=== PATIENT | female | born 1965 ===

== ENCOUNTER 2021-01-27 06:20 | Day surgery (SDC) | payer OTHER ==
[~2021-01-27 06:20] MED LIST: LEVOTHYROXINE25 MCG PO; LIPITOR20 MG; TOPROL XL25 M1 PO
[2021-01-27] MEDS ORDERED: DOXYCYCLINE HY100 M2 PO (16:19)
[2021-01-27] MEDS ORDERED: IBU600 MG PO (16:20)
== END 2021-01-27 20:55 | disposition home or self-care (01) ==
LOC: CIR.AMB 06:20
PROVIDERS: ATTEND Obstetrics & Gynecology
DX: D25.0 Submucous leiomyoma of uterus (principal); N84.0 Polyp of corpus uteri; Z20.822 Contact with and (suspected) exposure to COVID-19